=== PATIENT | male | born 1985 | race Caucasian/White ===

== ENCOUNTER 2018-03-05 18:29 | Emergency (ER) | payer OTHER ==
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
[2018-03-05] MEDS ORDERED: CEPHALEXIN MONO 500 MG CAP PO ONE (18:55)
[2018-03-05] MEDS ORDERED: predniSONE 20 MG TAB PO ONE (18:55)
[2018-03-05] MEDS ORDERED: PRED20TA6 PO (18:58)
[2018-03-05] MEDS ORDERED: CEPH500C24 PO (18:58)
[2018-03-05 19:00] VITALS: BP 122/90
[2018-03-05] MEDS ORDERED: EPIN0.3P15 IM (19:06)
[2018-03-05] MEDS ORDERED: OXYC-865 PO (19:06)
[2018-03-05] MEDS ORDERED: oxyCODONE/ACETAMIN 5/325MG TH 2 TAB/BOTTLE PO ONE (19:10)
== END 2018-03-05 19:15 | disposition home or self-care (01) ==
LOC: ER 18:43
DX: T63.441A Toxic effect of venom of bees, accidental (unintentional), initial encounter (principal); L03.116 Cellulitis of left lower limb; S20.211A Contusion of right front wall of thorax, initial encounter
CPT/HCPCS: 99283; J7512